=== PATIENT | male | born 2000 | race Native Hawaiian/Other Pacific Islander ===

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

== ENCOUNTER 2019-04-30 20:11 | Emergency (ER) | payer OTHER ==
[~2019-04-30] VITALS: Ht 170.2 cm; Wt 72.7 kg
[2019-04-30] MEDS ORDERED: MUPI2OI TOP (21:34)
[2019-04-30 21:51] VITALS: BP 121/65
== END 2019-04-30 21:51 | disposition home or self-care (01) ==
LOC: M ED 20:11
DX: L01.00 Impetigo, unspecified (principal)

== ENCOUNTER 2021-12-16 10:17 | Emergency (ER) | payer OTHER ==
[~2021-12-16] VITALS: Ht 170.2 cm; Wt 71.8 kg
[~2021-12-16 10:17] MED LIST: MUPI2OI TOP
[2021-12-16] MEDS ORDERED: LIDOCAINE 1% SDV 5ML VIAL DILUENT ONE (12:25)
[2021-12-16] MEDS ORDERED: cefTRIAXone 500MG VIAL (J0696 PER 250MG) IM ONE (12:25)
[2021-12-16] MEDS ORDERED: DOXYCYCLINE HYCLATE 100MG TABLET PO ONE (12:25)
[2021-12-16] MEDS ORDERED: DOXY-443 PO (12:27)
[2021-12-16 13:49] VITALS: BP 127/76
[2021-12-16 14:26] LABS: GC DNA AMPLIFICATION NEGATIVE (NEGATIVE)
== END 2021-12-16 13:49 | disposition home or self-care (01) ==
LOC: M ED 10:17
DX: N45.2 Orchitis (principal); N50.811 Right testicular pain
CPT/HCPCS: 76870; 81001; 87808; 87810; 87850; 93976; 96372; 99284; J0696